=== PATIENT | male | born 1975 | race Caucasian/White ===

== ENCOUNTER 2023-11-20 21:40 | Inpatient (IN) | payer OTHER ==
[2023-11-20 22:43] VITALS: BMI 20.5
[2023-11-20] MEDS ORDERED: VITAMINS A AND D TOPICAL OINTMENT TP PRN (23:14)
[2023-11-20] MEDS ORDERED: guaiFENesin 600 MG TABLET.ER (FP) PO PRN (23:15)
[2023-11-20] MEDS ORDERED: ONDANSETRON *ODT* 4 MG TABLET SL PRN (23:15)
[2023-11-20] MEDS ORDERED: MAGNESIUM HYDROX 2400MG/30ML ORAL SUSPENSION 30 ML CUP PO PRN (23:15)
[2023-11-20] MEDS ORDERED: BENZONATATE 200 MG CAPSULE PO PRN (23:15)
[2023-11-20] MEDS ORDERED: BENZOCAINE/MENTHOL (CHLORASEPTIC ) LOZENGE MM PRN (23:15)
[2023-11-20] MEDS ORDERED: NALOXONE HCL (KLOXXADO) 8 MG SPRAY NS PRN (23:15)
[2023-11-20] MEDS ORDERED: NALOXONE HCL 0.4 MG/ML VIAL IM PRN (23:15)
[2023-11-20] MEDS ORDERED: IBUPROFEN 400 MG TABLET (FP) PO PRN (23:15)
[2023-11-20] MEDS ORDERED: POLYETHYLENE GLYCOL (HEALTHYLAX) 3350 17 GM PACKET PO PRN (23:15)
[2023-11-20] MEDS ORDERED: BISMUTH SUBSALICYLATE 524 MG/30 ML PO PRN (23:15)
[2023-11-20] MEDS ORDERED: DICYCLOMINE HCL 10 MG CAPSULE PO PRN (23:15)
[2023-11-20] MEDS ORDERED: NICOTINE POLACRILEX 2 MG LOZENGE BC PRN (23:15)
[2023-11-20] MEDS ORDERED: LOPERAMIDE HCL 2 MG CAPSULE PO PRN (23:15)
[2023-11-21] MEDS ORDERED: hydrOXYzine PAMOATE 25 MG CAPSULE (FP) PO ONE (01:58)
[2023-11-21] MEDS ORDERED: ACETAMINOPHEN 325 MG TABLET (FP) ONE (01:58)
[2023-11-21] MEDS: ACETAMINOPHEN 325 MG TABLET (FP) PO PRN (02:00)
[2023-11-21] MEDS: hydrOXYzine PAMOATE 25 MG CAPSULE (FP) PO PRN (02:00)
[2023-11-21] MEDS ORDERED: IBUPROFEN 600 MG TABLET (FP) PO ONE (03:21)
[2023-11-21] MEDS: IBUPROFEN 600 MG TABLET (FP) PO PRN (03:24)
[2023-11-21] MEDS: MAG HYDROX/AL HYDROX/SIMETH 30 ML UNIT-DOSE CUP PO PRN (07:09)
[2023-11-21] MEDS ORDERED: ALBUTEROL SO4 HFA INHALER IH PRN (09:46)
[2023-11-21] MEDS: PRENATAL VITAMINS W/ FOLIC ACID TABLET (FP) PO SCH (10:25)
[2023-11-21] MEDS: diazePAM 5 MG TABLET PO SCH (10:25)
[2023-11-21] MEDS: NICOTINE 14 MG/24 HOURS TOPICAL PATCH TD SCH (10:26)
[2023-11-21 12:22] LABS: HEMATOCRIT 42.3 % (35.4-49); HEMOGLOBIN 14.1 GM/dL (11.7-16.9); MCH 30.7 pg (25.7-33.7); MCHC 33.4 g/dl (32.0-35.9); MEAN CELL VOLUME 91.7 fl (80-96); MEAN PLT VOLUME 7.9 fl (7.5-11.1); PLATELET COUNT 306 10^3/uL (134-434); RBC 4.61 M/mm3 (4.00-5.60); RDW 13.8 % (11.9-15.9); WHITE BLOOD COUNT 8.7 K/mm3 (4.0-10.0)
[2023-11-21 13:23] LABS: POTASSIUM 3.8 mmol/L (3.5-5.1)
[2023-11-21 13:24] LABS: CALCIUM 8.6 mg/dL (8.5-10.1)
[2023-11-21 13:25] LABS: ALBUMIN 3.7 g/dl (3.4-5.0); BLOOD UREA NITROGEN 21.2 mg/dL (7-18)
[2023-11-21 13:28] LABS: CREATININE 0.9 mg/dL (0.55-1.3)
[2023-11-21 13:29] LABS: BILIRUBIN,TOTAL 0.6 mg/dL (0.2-1)
[2023-11-21 13:30] LABS: TOT PROT 6.6 g/dl (6.4-8.2)
[2023-11-21] MEDS: diazePAM 5 MG TABLET PO PRN (13:51)
[2023-11-21] MEDS: LACTULOSE 20 GM/30 ML UDC (FOR ORAL USE ONLY) PO SCH (14:05)
[2023-11-21] MEDS: FLUTICASONE/SALMETEROL (WIXELA) 100 MCG/50 MCG DISKUS IH SCH (15:24)
[2023-11-21] MEDS: MELATONIN 5 MG TABLETS PO SCH (22:07)
[2023-11-21] MEDS: THIAMINE HCL 100 MG TABLET (FP) PO SCH (22:07)
[2023-11-22 12:10] LABS: CHOLESTEROL 203 mg/dL (50-200)
[2023-11-22 12:11] LABS: LDL CHOLESTEROL (ONLY SJRH) 121 mg/dL (5-100)
[2023-11-22 12:13] LABS: HDL CHOLESTEROL 57 mg/dL (40-60)
[2023-11-23] MEDS: diazePAM 5 MG TABLET PO SCH (05:42)
[2023-11-23] MEDS: METHOCARBAMOL 500 MG TABLET PO PRN (22:39)
[2023-11-24] MEDS: diazePAM 5 MG TABLET PO SCH (05:56)
[2023-11-25] MEDS: diazePAM 5 MG TABLET PO ONE (05:47)
[2023-11-25 08:57] VITALS: BP 126/67; PULSE 69; RESP 16; TEMP 98.3
== END 2023-11-25 12:04 | disposition other institution (70) | DRG 897 ==
LOC: YASAS 21:40 → Y3N 23:45
PROVIDERS: ADMIT Allergy & Immunology; ATTEND Surgery
PROC: HZ2ZZZZ Detoxification Services for Substance Abuse Treatment (ICD-10-PCS; principal; 2023-11-20)
DX: F10.230 Alcohol dependence with withdrawal, uncomplicated (principal); E72.20 Disorder of urea cycle metabolism, unspecified; F10.220 Alcohol dependence with intoxication, uncomplicated; F17.210 Nicotine dependence, cigarettes, uncomplicated; F19.24 Other psychoactive substance dependence with psychoactive substance-induced mood disorder; F41.9 Anxiety disorder, unspecified; Z86.59 Personal history of other mental and behavioral disorders; L30.8 Other specified dermatitis
CPT/HCPCS: 36415; 80053; 80061; 80307; 82140; 82962; 85027; 86780; 93005; 93010